=== PATIENT | female | born 2000 | race Caucasian/White ===

== ENCOUNTER 2020-01-20 12:51 | Emergency (ER) | payer MEDICAID ==
--- NOTE | 2020-01-20 12:53 | ERPHSYRPT ---
- History of Present Illness Time Seen by Provider: 01/20/20 12:53 Source: patient Exam Limitations: no limitations Physician History: This is a 19-year-old diabetic white female who has had a right lower abdominal wall abscess that has been present for 5 days and is now opened up completely and draining. Is just above her pannus on the right side. Patient has not had fevers. She did state she had an insect bite of her left forearm which is healed. This insect bite occurred several days prior to the abdominal wall abscess. She also has a small area on her right buttock that is slightly red and raised. Patient does not have a history of MRSA or known exposure to MRSA. Timing/Duration: day(s) (5) Quality: painful Severity: mild Location: torso (Right lower abdominal wall) Possible Causes: no cause identified Allergies/Adverse Reactions: No Known Drug Allergies Allergy (Unverified 01/20/20 13:57) Home Medications: Atorvastatin Calcium 10 mg PO DAILY 01/20/20 [History] Empagliflozin [Jardiance] 10 mg PO DAILY 01/20/20 [History] Insulin Glargine,Hum.rec.anlog [Lantus Solostar] 100 units SQ DAILY 01/20/20 [History] Metformin HCl 500 mg [Glucophage 500 MG] 1,000 mg PO BID 01/20/20 [History] Travel Risk - International Travel Have you traveled outside of the country in past 3 weeks: No - Coronavirus Screening Are you exhibiting any of the following symptoms?: No Close contact with a COVID-19 positive Pt in past 14-21 Days: No - Review of Systems Constitutional: No Symptoms, No Fever, No Chills Eyes: No Symptoms Ears, Nose, & Throat: No Symptoms Respiratory: No Symptoms Cardiac: No Symptoms Abdominal/Gastrointestinal: No Symptoms Genitourinary Symptoms: No Symptoms Musculoskeletal: No Symptoms Skin: No Symptoms Neurological: No Symptoms Psychological: No Symptoms Endocrine: No Symptoms Hematologic/Lymphatic: No Symptoms Immunological/Allergic: No Symptoms All Other Systems: Reviewed and Negative - Past Medical History Pertinent Past Medical History: Yes Neurological History: No Pertinent History ENT History: No Pertinent History Cardiac History: No Pertinent History Respiratory History: No Pertinent History Endocrine Medical History: Diabetes Type I Musculoskeletal History: No Pertinent History GI Medical History: No Pertinent History History: No Pertinent History Psycho-Social History: No Pertinent History Female Reproductive Disorders: No Pertinent History - Past Surgical History Past Surgical History: No Neuro Surgical History: No Pertinent History Cardiac: No Pertinent History Respiratory: No Pertinent History Gastrointestinal: No Pertinent History Genitourinary: No Pertinent History Musculoskeletal: No Pertinent History Female Surgical History: No Pertinent History - Nursing Vital Signs Nursing Vital Signs: Initial Vital Signs Temperature 98.7 F 01/20/20 13:57 Pulse Rate 84 01/20/20 13:57 Respiratory Rate 18 01/20/20 13:57 Blood Pressure 132/93 01/20/20 13:57 O2 Sat by Pulse Oximetry 98 01/20/20 13:57 Pain Scale Pain Intensity 2 - Course Nursing assessment & vital signs reviewed: No Ordered Tests: Active Orders 24 hr Category Date Time Status CULTURE,WOUND Stat Lab 01/20/20 14:19 Uncollected Medication Summary Discontinued Medications Generic Name Dose Route Start Last Admin Trade Name Freq PRN Reason Stop Dose Admin Ceftriaxone Sodium 1,000 mg 01/20/20 14:20 Rocephin 1000 Mg Inj IM 01/20/20 14:21 STAT ONE Trimethoprim/Sulfamethoxazole 1 tab 01/20/20 14:20 Bactrim Ds Tablet PO 01/20/20 14:21 STAT ONE - Progress Progress: unchanged Counseled pt/family regarding: diagnosis, need for follow-up - Departure Departure Disposition: Home Clinical Impression: Skin abscess Condition: Stable Critical Care Time: No Referrals: DEVANTE ROBERTSON [Primary Care Provider] - Additional Instructions: Keep area clean daily with soap and water. Cover with bandage. Do not use lotion ointments or creams. Take your medication as prescribed. Follow-up with your primary care doctor in 1 to 2 days for evaluation. Return to the emergency department for worsening symptoms. Forms: Work/School Release Form Prescriptions: Hydrocodone/APAP 5/325 [[place] 5/325 mg] 1 each PO Q8H PRN PRN #6 tablet MDD 3 PRN Reason: Pain Smz/Tmp Ds Tablet [Bactrim Ds Tablet] 1 udtab PO BID #14 tablet
[2020-01-20 14:08] VITALS: BP 132/93
[2020-01-20 14:09] VITALS: PULSE 86; O2SAT 97
[2020-01-20] MEDS ORDERED: BACTRIM DS TABLET PO ONE ×2 (14:20→14:35)
[2020-01-20] MEDS ORDERED: Rocephin 1000 MG INJ IM ONE (14:20)
[2020-01-20] MEDS ORDERED: Rocephin 1000 MG INJ ONE (14:36)
[2020-01-20] MEDS ORDERED: XYLOCAINE 1% HCL 20 ML MDV ONE (14:36)
== END 2020-01-20 15:04 | disposition home or self-care (01) ==
LOC: ED 12:51
DX: L02.211 Cutaneous abscess of abdominal wall (principal); Z86.14 Personal history of Methicillin resistant Staphylococcus aureus infection; Z79.899 Other long term (current) drug therapy
CPT/HCPCS: 87070; 87077; 87186; 96372; 99284; J0696; A9270-GY